=== PATIENT | female | born 1955 | race Caucasian/White ===

== ENCOUNTER 2023-05-23 08:19 | Day surgery (SDC) | payer OTHER, SELFPAY ==
[2023-05-02 10:22] VITALS: BMI 28.6
[2023-05-02 11:22] LABS: % Basophils 0.8 % (0-2); % Immature Granulocytes 0.2 % (0-0.5); % Lymphocytes 33.5 % (20.5-51.1); % Monocytes 6.4 % (1.7-9.3); % Neutrophils 57.1 % (42.2-75.2); Absolute Eosinophils 0.1 10^3/uL (0-0.7); Absolute Lymphocytes 1.7 10^3/uL (1.2-3.4); Absolute Monocytes 0.3 10^3/uL (0.1-0.6); Absolute Neutrophils 2.9 10^3/uL (1.4-6.5); Hematocrit 36.5 % (37.0-47.0); Hemoglobin 12.3 g/dL (12.0-16.0); Mean Corp Hgb Conc. 33.7 g/dL (33.0-37.0); Mean Corpuscular Hgb 30.4 pg (27.0-31.0); Mean Corpuscular Volume 90.3 fL (81.0-99.0); Mean Platelet Volume 9.9 fL (7.4-10.4); Nucleated Red Blood Cells % 0 %; Platelet Count 239 10^3/uL (130-400); Red Blood Cell Count 4.04 10^6/uL (4.20-5.40); Red Cell Dist. Width 12.1 % (11.5-14.5)
[2023-05-02 11:31] LABS: ALT (SGPT) < 10 U/L (0-35); AST (SGOT) 25 U/L (14-36); Albumin 3.9 g/dl (3.5-5.0); Alkaline Phosphatase 90 U/L (38-126); Blood Urea Nitrogen 15 mg/dl (7-17); Calcium 9.5 mg/dl (8.4-10.2); Carbon Dioxide 25 mmol/L (22-30); Chloride 105 mmol/L (98-107); Estimated Creatinine Clearance 73 ml/min; Glucose 81 mg/dl (70-99); Magnesium 2.2 mg/dl (1.6-2.3); Potassium 4.6 mmol/L (3.5-5.1); Sodium 138 mmol/L (135-145); Total Bilirubin 0.4 mg/dl (0.2-1.3); Total Protein 6.8 g/dl (6.3-8.2); eGFR > 60.00
[2023-05-02 13:03] LABS: INR 1.41
[2023-05-23] VITALS (8 sets, daily range): BP systolic 102–147; BP diastolic 53–116; BMI 26.6
[2023-05-23 11:37] LABS: ACT-LR - POC 276 Seconds (116-155)
[2023-05-23 11:57] LABS: ACT-LR - POC 306 Seconds (116-155)
[2023-05-23 12:21] LABS: ACT-LR - POC 371 Seconds (116-155)
--- NOTE | 2023-05-23 12:46 | ITS.CL.ABL ---
[employer] - Ablation
Ablation
Procedure Report:
ELECTROPHYSIOLOGY ABLATION STUDY
DATE:: May 23, 2023 REFERRING: Dr. Ben Manzano
INDICATION: Paroxysmal supraventricular tachycardia in the form of atrial fibrillation. Review of available tracings demonstrates atrial fibrillation only
HISTORY: See H and P. As above
ANTIARRHYTHMIC DRUG: Metoprolol
PRE-PROCEDURE ISI: No intracardiac thrombus on intracardiac ultrasound
PRESENTING RHYTHM: Sinus rhythm with frequent bursts of atrial fibrillation and atrial tachycardia from the left superior pulmonary vein
'TIME-OUT': called and confirmed.
SEDATION/ANESTHESIA: provided via the anesthesia department using general anesthesia (LMA).
INTRAVENOUS/ARTERIAL ACCESS:
Right femoral venous - 8Fr
Left femoral venous - 8 Fr, 6 Fr
Ultrasound guidance for bilateral femoral vein access was utilized by me to obtain access with demonstration of normal anatomy
Vascade vascular closure was utilized to close each venous access site in the right and left femoral veins
HAS-Bled Score
PROCEDURE:
1. A decapolar CS catheter was placed within the CS for mapping and pacing. This was also used as the reference catheter for the 3-D map.
2. The intracardiac ultrasound catheter was positioned in the RA to identify the FO for targeting of transseptal puncture, assist in identification of the pulmonary vein ostia, monitoring pre and post ablation pulmonary vein flow velocities,
monitoring for 'bubble' formation during RF application as a sign of thermal injury, and to monitor for pericardial effusion during mapping and ablation procedure. Left atrial size, LV ejection fraction, and pulmonary vein flows were monitored
pre and post ablation procedure. The other valves were inspected and found to be free of significant regurgitation or stenosis.
3. Half of the calculated heparin bolus was administered prior to the first transeptal puncture. Transseptal puncture was performed to diagnose RA and LA pressure so that safety of LA mapping and ablation could be further assessed, and to access
the left atrium and pulmonary veins for mapping and ablation. 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
was accomplished with a safe septal wire and the flex cath was brought to the left atrium over a ProTrac wire. This entailed advancing the 10 [place] steerable sheath with dilator into the superior vena cava and withdrawing both (monitoring
intracardiac ultrasound, fluoroscopy and tip pressure) with the tip oriented toward the atrial septum. The fossa ovalis was engaged (indicated by sudden displacement of the sheath tip as well as tenting of the fossa seen on intracardiac
ultrasound). Left atrial access required a pass with the [place] needle extended. Left atrial catheter position was confirmed by pressure monitoring (RA mean pressure mm Hg and LA mean presure 12 mm Hg), LA saturation (99%), as well as
fluoroscopy. The sheath was advanced over the dilator and positioned in the left atrium. This procedure was repeated for the Agilis sheath. The remainder of the calculated heparin bolus was administered and heparin was
infused to maintain ACT at 300 -350 seconds throughout the case.
4. RA pacing was performed via the proximal decapolar poles and LA pacing was performed via the distal decapolr poles.
5. A quadrapolar catheter was first positioned at the His position for His Bundle recording which was tagged via the 3-D Navex sytem, and then passed to the RVA for RV pacing and recording.
6. The 20 mm cryoballoon and 15 mm octapolar G recording catheter were placed in each of the LIPV, LSPV, RSPV and the RIPV.
7. Next, a 3-D map was created using Navex. A 3-D reconstructed CT image was compared to the 3-D Navex map to assist in anatomic interpretation, mapping and ablation. The CT image and the NavX image were fused.
8. 1 distinct 4-minute freezing application was given to the left superior and left inferior pulmonary veins with 2 distinct 2.5-minute freezing applications to the right superior pulmonary vein and right inferior pulmonary veins with cooling of
the esophagus down to 24 �C during the first freeze of the right supra pulmonary vein. There was attenuation of the phrenic nerve transiently at the right supra pulmonary vein but with more antral and septal freezing applications there was no
further attenuation with stable, intact, and strong phrenic nerve capture at end of procedure. Once entrance exit block was confirmed in all 4 pulmonary veins EP study performed demonstrated no other nonpulmonary triggers for atrial fibrillation or
other mechanisms for supraventricular arrhythmia.
9. Normal sinus node and AV ana function noted.
TOTAL FLOURO TIME: 12.7 minutes 43 mGy
TOTAL RF DURATION: 0 minutes
REVERSAL OF HEPARIN: 40 mg of protamine, slow IV administration
COMPLICATIONS:
None
Intracardiac US shows no pericardial effusion post ablation.
SUMMARY:
Complex left atrial mapping and ablation.
Isolation of all 4 pulmonary veins as above with a trigger vein being the left upper pulmonary vein demonstrating atrial tachycardia atrial fibrillation
RECOMMENDATIONS:
1. Admit to monitored bed.
2. Resume anticoagulation
3. Out of bed 2 hours
4. Consider same-day discharge
Copy to: Dr. Ben Manzano at cardiology
[2023-05-23] MEDS: MAALOX 30 ML PO (14:40)
== END 2023-05-23 15:07 | disposition home or self-care (01) ==
LOC: CATH 08:19
PROVIDERS: ATTENDING PHYSICIAN Internal Medicine Cardiovascular Disease; FAMILY PHYSICIAN Family Medicine Sports Medicine; OTHER PHYSICIAN Internal Medicine Cardiovascular Disease
DX: I48.0 Paroxysmal atrial fibrillation (principal); I48.3 Typical atrial flutter; E78.5 Hyperlipidemia, unspecified; Z79.01 Long term (current) use of anticoagulants; Z87.891 Personal history of nicotine dependence
CPT/HCPCS: C1893; C1759; C1766; C1730 ×2; C1894; C1892; C1733; 36415; 75572; 76937; 80053; 83735; 85025; 85347; 85610; 86850; 86900; 86901; 93005; 93656; C1760; Q9967